=== PATIENT | female | born 1960 | race Caucasian/White ===

== ENCOUNTER → 2017-02-24 | Day surgery (SDC) | payer BC | END | disposition home or self-care (01) | LOC: SDC 09:22 | DX: Z12.11 Encounter for screening for malignant neoplasm of colon (principal); D12.3 Benign neoplasm of transverse colon; K57.30 Diverticulosis of large intestine without perforation or abscess without bleeding; R53.83 Other fatigue; R51 Headache; Z79.899 Other long term (current) drug therapy | CPT/HCPCS: J2704 ==